=== PATIENT | male | born 1955 | race Caucasian/White ===

== ENCOUNTER 2016-12-13 14:23 | Observation (INO) | payer OTHER ==
[~2016-12-13] VITALS: Ht 170.2 cm; Wt 105.9 kg
[~2016-12-13 14:23] MED LIST: ACET500T98 PO; IBUP-1542 PO; IMO2 PO; OMEP20TA55; ONDA4TAB8 PO
[2016-12-13] MEDS ORDERED: ONDANSETRON 4 MG INJ IV STA (20:39)
[2016-12-13] MEDS ORDERED: SOD CHLORIDE 0.9% 1,000 ML IV STA (20:39)
[2016-12-13] MEDS ORDERED: morphine 4 MG/ML VIAL IV STA (20:39)
[2016-12-13 20:59] LABS: ADD SCAN DIFF NO
[2016-12-13 21:05] LABS: BASOPHILS % 0.3 % (0.0-2.0); HEMATOCRIT 55.1 % (42.0-52.0); HEMOGLOBIN 19.1 g/dl (14.0-18.0); LYMPHOCYTES # 0.9 10^3/ul (0.8-2.9); LYMPHOCYTES % 14.8 % (15.0-51.0); MEAN CORPUSCULAR HEMOGLOBIN 31.8 pg (29.0-33.0); MEAN CORPUSCULAR HGB CONC 34.7 g/dl (32.0-37.0); MEAN CORPUSCULAR VOLUME 91.8 fl (82.0-101.0); MEAN PLATELET VOLUME 10.8 fl (7.4-10.4); MONOCYTE # 0.7 10^3/ul (0.3-0.9); NEUTROPHIL # 4.7 10^3/ul (1.6-7.5); NEUTROPHILS % 73.7 % (39.0-77.0); PLATELET COUNT 234 10^3/UL (140-415); RED CELL DISTRIBUTION WIDTH 13.3 % (11.5-14.5); WHITE BLOOD COUNT 6.4 10^3/ul (4.8-10.8)
--- NOTE | 2016-12-13 21:13 | RADRPT ---
PROCEDURE: Right upper quadrant abdominal ultrasound. CLINICAL INDICATION: Abdominal pain TECHNIQUE: Traore scale and color doppler ultrasound images of the right upper quadrant. COMPARISON: CT abdomen pelvis 10/05/2016 FINDINGS: Pancreas: Visualized portions appear of normal echogenicity, no focal lesions. Liver: Morphology: Normal in size and contour. Echogenicity: Mildly increased echogenicity of the liver suggestive of hepatic steatosis. Focal lesions: None. Main portal vein: Patent with hepatopetal flow. Biliary System: Normal appearing gallbladder wall. No gallstones seen. No intrahepatic biliary dilatation. Common bile duct measures 3.6 mm in maximal dimension. Kidneys: Right 10.2 cm in length. Right renal cortical thickness is preserved. Normal echogenicity. No hydronephrosis. No renal calculi. 3.6 cm cortical cyst of the right kidney. No free fluid identified. IMPRESSION: Normal gallbladder without gallstones. Mildly increased echogenicity of the liver suggestive of hepatic steatosis. RPTAT: AADD .Carlyle Gatica MD, MD Date Time Electronically viewed and signed by .Carlyle Gatica MD, on 12/13/2016 21:13 .B/
[2016-12-13 21:14] LABS: ALBUMIN 4.9 g/dl (3.3-4.9)
[2016-12-13 21:15] LABS: POTASSIUM 4.9 mmol/L (3.5-5.1)
[2016-12-13 21:16] LABS: BILIRUBIN,INDIRECT 0.7 mg/dl (0-1.1); BILIRUBIN,TOTAL 0.7 mg/dl (0.2-1.3); CREATININE 3.65 mg/dl (0.61-1.24)
[2016-12-13 21:17] LABS: ALBUMIN/GLOBULIN RATIO 1.08; CALCIUM 9.2 mg/dl (8.4-10.2); TOTAL PROTEIN 9.4 g/dl (6.1-8.1)
--- NOTE | 2016-12-13 21:42 | ERA ---
ER Documentation Chief Complaint Date/Time DATE: 12/13/16 TIME: 21:39 Chief Complaint AP X 3 DAYS WITH DARK BLACK STOOLS HX COLON CANCER HPI Patient is a 61-year-old male who complains of abdominal pain for last 3 days. The abdominal pain is located across the upper abdomen but most predominantly in the right upper quadrant and radiates through to the back. He has not had any fever, nausea, vomiting, dysuria, hematuria, or flank pain. He did have some diarrhea with one episode of dark stool. He is never experienced this before nothing seems to make it better or worse. He has not been out of the country and he is not been on any antibiotics recently. He denies drinking any alcohol. His colon cancer was approximately 4 years ago and he did receive surgery and chemo at that time. He has been cancer free since then. He has not had any chest pain, shortness of breath, coughing, congestion, rhinorrhea, sore throat, or otalgia. He has not been dizzy, had any abnormal bleeding, bruises, or rashes. ROS All systems reviewed and are negative except as per history of present illness. Medications Home Meds Discontinued Reported Medications Acetaminophen (Tylenol) 500 Mg Tab, 500 MG PO BID 08/27/11 Omeprazole Magnesium (Prilosec OTC) 20 Mg Tablet. 05/23/10 Discontinued Scripts Ibuprofen* (Ibuprofen*) 600 Mg Tablet, 600 MG PO Q8 for PAIN, #30 TAB Prov:DOUG GUERRERO MD 10/05/16 Loperamide Hcl* (Loperamide Hcl*) 2 Mg Cap, 2 MG PO TID for DIARRHEA, #20 CAP Prov:DOUG GUERRERO MD 10/05/16 Ondansetron Hcl* (Zofran*) 4 Mg Tablet, 4 MG PO Q8H Y for NAUSEA AND/OR VOMITING , #30 TAB Prov:DOUG GUERRERO MD 10/05/16 Allergies Allergies: Coded Allergies: No Known Allergies (Verified Allergy, Mild, 12/13/16) PMhx/Soc History of Surgery: Yes (colon resection) Anesthesia Reaction: No Hx Neurological Disorder: No Hx Respiratory Disorders: No Hx Cardiac Disorders: No Hx Psychiatric Problems: No Hx Miscellaneous Medical Probl: Yes (colon cancer) Hx Alcohol Use: No Hx Substance Use: No Hx Tobacco Use: No Smoking Status: Never smoker Physical Exam Vitals Vital Signs Date Time Temp Pulse Resp B/P Pulse Ox O2 Delivery O2 Flow Rate FiO2 12/13/16 21:15 98.4 78 18 116/73 94 Room Air 12/13/16 14:37 98.8 104 20 105/69 96 Physical Exam Const: [] Well-developed well-nourished male who appears uncomfortable but nontoxic Head: Atraumatic normocephalic Eyes: Normal Conjunctiva ENT: Normal External Ears, Nose and Mouth. Neck: Full range of motion..~ No meningismus. Resp: Clear to auscultation bilaterally Cardio: Regular rate and rhythm, no murmurs Abd: Soft, mild tenderness to palpation diffusely but most predominantly in the right upper quadrant, no masses, rebound, or guarding, diminished bowel sounds diffusely Skin: No petechiae or rashes Back: No midline or flank tenderness Ext: No cyanosis, or edema Neur: Awake and alert Psych: Normal Mood and Affect exam rectal is normal tone, stools brown, guaiac negative Result Diagram: 12/13/16204912/13/162049 Results 24 hrs Laboratory Tests Test 12/13/16 20:50 12/13/16 21:30 Alanine Aminotransferase (ALT/SGPT) 94IU/L Albumin 4.9g/dl Albumin/Globulin Ratio 1.08 Alkaline Phosphatase 99IU/L Anion Gap 28 Aspartate Amino Transf (AST/SGOT) 76IU/L Basophils # 0.010^3/ul Basophils % 0.3% Blood Urea Nitrogen 46mg/dl Calcium Level 9.2mg/dl Carbon Dioxide Level 18mmol/L Chloride Level 97mmol/L Creatinine 3.65mg/dl Direct Bilirubin 0.00mg/dl Eosinophils # 0.010^3/ul Eosinophils % 0.0% Globulin 4.50g/dl Glucose Level 122mg/dl Hematocrit 55.1% Hemoglobin 19.1g/dl Indirect Bilirubin 0.7mg/dl Lipase 35U/L Lymphocytes # 0.910^3/ul Lymphocytes % 14.8% Mean Corpuscular Hemoglobin 31.8pg Mean Corpuscular Hemoglobin Concent 34.7g/dl Mean Corpuscular Volume 91.8fl Mean Platelet Volume 10.8fl Monocytes # 0.710^3/ul Monocytes % 11.0% Neutrophils # 4.710^3/ul Neutrophils % 73.7% Nucleated Red Blood Cells # 0.010^3/ul Nucleated Red Blood Cells % 0.0/100WBC Platelet Count 78539^3/UL Potassium Level 4.9mmol/L Red Blood Count 6.0010^6/ul Red Cell Distribution Width 13.3% Sodium Level 138mmol/L Total Bilirubin 0.7mg/dl Total Protein 9.4g/dl White Blood Count 6.410^3/ul Urine Amorphous Urates FEW Urine Bilirubin NEGATIVE Urine Clarity SLIGHTLY CLOUDY Urine Color YELLOW Urine Fine Granular Casts FEW Urine Glucose NEGATIVE% Urine Hemoglobin 2+ Urine Hyaline Casts MODERATE Urine Ketones NEGATIVE Urine Leukocyte Esterase NEGATIVE Urine Microscopic RBC 0-2/HPF Urine Microscopic WBC 0-2/HPF Urine Nitrite NEGATIVE Urine Specific [place] >=1.030 Urine Squamous Epithelial Cells FEW Urine Total Protein 1+ Urine Urobilinogen 0.2 E.U./dL Urine pH 5.0 Current Medications Medications (Trade) Dose Ordered Sig/Rasheeda Route PRN Reason Start Time Stop Time Status Last Admin Dose Admin Sodium Chloride (NS) 1,000 ml @ 1,000 mls/hr Q1H STAT IV 12/13/16 20:39 12/13/16 21:38 DC 12/13/16 20:50 Morphine Sulfate (morphine) 4 mg ONCE STAT IV 12/13/16 20:39 12/13/16 20:42 DC 12/13/16 20:50 Ondansetron HCl 4 mg 4 mg ONCE STAT IV 12/13/16 20:39 12/13/16 20:42 DC 12/13/16 20:50 Sodium Chloride (NS) 1,000 ml @ 1,000 mls/hr Q1H ONCE IV 12/14/16 00:00 12/14/16 00:59 Procedures/MDM Eventual includes but is not limited to diarrhea, gastritis, small bowel obstruction, cholelithiasis, cholecystitis, enteritis, colitis, nonspecific abdominal pain, recurrent cancer Ultrasound of the right upper quadrant does not reveal any acute intra- abdominal findings CT of the abdomen pelvis is still pending. Patient has had a significant increase in his creatinine since September on review of his lab work. Departure Diagnosis: Primary Impression: Abdominal pain Qualified Code: R10.10 - Pain of upper abdomen Additional Impressions: Renal failure (ARF), acute on chronic Diarrhea Qualified Code: R19.7 - Diarrhea, unspecified type History of cancer of colorectal region Dehydration Condition: LAM Rosen Dec 13, 2016 21:42
[2016-12-13 22:18] LABS: ADD UMIC YES; URINE BILIRUBIN (Dip) NEGATIVE (NEGATIVE); URINE BLOOD (Dip) 2+ (NEGATIVE); URINE COLOR YELLOW (YELLOW); URINE GLUCOSE (Dip) NEGATIVE (NEGATIVE); URINE KETONES (Dip) NEGATIVE (NEGATIVE); URINE LEUKOCYTE ESTERASE (Dip) NEGATIVE (NEGATIVE); URINE NITRITE (Dip) NEGATIVE (NEGATIVE); URINE TOTAL PROTEIN (Dip) 1+ (NEGATIVE); URINE UROBILINOGEN (Dip) 0.2 E.U./dL (0.1-1.0)
[2016-12-13 22:26] LABS: SQUAMOUS EPITHELIAL CELL,UR FEW; URINE RBCS 0-2 /HPF (0)
--- NOTE | 2016-12-13 23:38 | RADRPT ---
PROCEDURE: CT Abdomen and Pelvis without contrast. CLINICAL INDICATION: Abdominal pain, right lower quadrant, history of colon carcinoma status post colon resection TECHNIQUE: CT scan of the abdomen and pelvis without contrast was performed on a multidetector hig h-resolution CT scanner. The patient was scanned without intravenous contrast. No oral contrast was administered. Coronal and sagittal reformatted images were obtained from the axial source images. Im ages were reviewed on a high-resolution PACS workstation. The total exam CTDI equals 11.44 mGy and the total exam DLP equals 696.33 mGy-cm. One or more of the following dose reduction techniques were used: - Automated exposure control. - Adjustment of the mA and/or kV according to patient size. - Use of iterative reconstruction technique. COMPARISON: Right upper quadrant abdominal ultrasound of 12/13/[address] abdomen and pelvis with out contrast of 10/05/2016 FINDINGS: Lungs: Mild dependent atelectasis is seen in the posterior lower lungs. Linear atelectasis/fibrosis is seen at the lung bases. Small amount of pericardial fluid. Liver: There is an approximate 1.2 cm oval fluid density structure in the lateral segment of the lef t lobe of liver again seen likely a cyst. Gallbladder: No abnormality seen. Spleen: No abnormality seen. Stomach: The stomach is not fully distended. No gross abnormality seen. Pancreas: No abnormality seen. Adrenals: No abnormality seen. Kidneys: No abnormality is seen in the left kidney. There is an approximate 2.8 cm rounded fluid d ensity structure likely a cyst again seen arising from the upper right kidney. No renal or ureteral stone seen. Abdominal aorta: No aneurysm seen. Atherosclerotic calcification is seen. Calcification in iliac a rteries. Ectasia of right common iliac artery to 1.6 cm diameter again seen. Lymph nodes: No enlarged lymph nodes are seen. Small bowel: No significantly dilated small bowel loops are seen. Colon: Opaque sutures in sigmoid colon in the right upper quadrant status post resection of the colo n proximal to this with anastomosis with small bowel again apparent. Appendix: Not seen. Bladder: No abnormality seen Pelvic organs: No abnormality seen Ascites: None seen. Osseous structures: Lumbar spondylosis. Degenerative changes at sacroiliac joints and hips. Small scattered likely bone islands again seen. Minimal curvature of the lumbar spine with convexity to ri ght again seen. IMPRESSION: Opaque sutures in sigmoid colon in the right upper quadrant status post resection of the colon proxi mal to this with anastomosis with small bowel again apparent. No acute abnormality seen. Please see above. RPTAT: HJES .Darren Nathan MD, Date Time Electronically viewed and signed by .Darren Nathan MD, on 12/13/2016 23:38 .S/
[2016-12-14] MEDS ORDERED: SOD CHLORIDE 0.9% 1,000 ML IV ONE
--- NOTE | 2016-12-14 00:57 | EN ---
Date/Time of Note Date/Time of Note DATE: 12/14/16 TIME: 00:56 ER Progress Note Discussion with admitting doctor was signed out to me by department physician. Patient is a regal IPAA patient. Dr. Calzada who was on-call is unreachable after multiple attempts in both his answering service and his cell phone. : Dr. Rodriguez who I spoke with and who agreed to admit the patient for acute kidney injury and dehydration. Patient is being admitted to medical surgical floor. CRYS MURPHY DO Dec 14, 2016 00:57
[2016-12-14] MEDS ORDERED: ACETAMINOPHEN 325 MG TAB PO PRN ×4 (01:00→02:30)
[2016-12-14] MEDS ORDERED: ONDANSETRON 4 MG INJ IV PRN ×4 (01:00→02:30)
[2016-12-14 01:02] VITALS: TEMP 97.8
[2016-12-14 01:30] VITALS: BP 120/74; PULSE 63; RESP 18; Ht 170.2 cm; Wt 105.9 kg
[2016-12-14 02:05] LABS: POTASSIUM 4.3 mmol/L (3.5-5.1)
[2016-12-14 02:08] LABS: CREATININE 2.38 mg/dl (0.61-1.24)
[2016-12-14 02:09] LABS: CALCIUM 7.8 mg/dl (8.4-10.2)
[2016-12-14] MEDS ORDERED: D5-NS + KCL 40 MEQ 1,000 ML IV SCH (02:30)
[2016-12-14] MEDS ORDERED: morphine 4 MG/ML VIAL IV PRN (02:30)
[2016-12-14] MEDS: POTASSIUM CHLORIDE 40 MEQ in DEXTROSE 5%-0.9% NACL 1,000 ML IV SCH ×4 (05:26→22:23)
[2016-12-14 06:38] LABS: PROTEIN URINE 71.7 mg/dl (0.0-9.9)
[2016-12-14 07:45] VITALS: BP 110/54; RESP 18
[2016-12-14 12:22] LABS: ADD SCAN DIFF NO
--- NOTE | 2016-12-14 12:22 | HP ---
DATE OF ADMISSION: 12/13/2016 PRIMARY CARE PHYSICIAN: Unknown. PREVIOUS FINANCIAL SALES ASSISTANT: Unknown. CHIEF COMPLAINT ON ADMISSION: Right sided abdominal pain and dark stools. HISTORY OF PRESENT ILLNESS: This is a 61-year-old male with history of colon cancer, unclear stage, status post partial colectomy for removal of the mass according to the patient, followed by the 8 doses of chemotherapy over a period of 5 months. This was 5 years ago. Since then, he has not had much followup from what I am understanding. He has not seen any primary care physician or livestock commission agent until a couple years ago. He reports he had then a colonoscopy, not sure what the results were at that time either. The patient claimed that he has been doing fairly okay. He has formed stools usually, but he has been having chronic right lower quadrant abdominal discomfort and pain for the past 5 years. He reports that over the past 3 years he had worsening of his pain on the right lower quadrant area with diarrhea. He has been having loose stools since Sunday. In the first 24 hours , he did notice dark stools coming out. He was having increased pain. He went to [facility], apparently was evaluated there. He had a CAT scan and reports that he was not told anything was abnormal and he was discharged from the emergency department. He was told to go to the lab 24 hours later for recheck. He went to an outpatient laboratory for blood draw. Apparently he was not looking good and not feeling good. They redirected him to the emergency department yesterday. In the emergency department, he had a CAT scan of the abdomen and pelvis and an abdominal ultrasound, which again only showed signs of status post resection of the colon. No other acute findings were seen. His hemoglobin seems to be running between 18 and 19. Therefore, he has signs of polycythemia. He denies any nausea, vomiting, fevers, chills. He denies any other localization of his abdominal pain besides the right upper and right lower quadrant area. He was found to have acute kidney injury with a creatinine up to 3.6 in the emergency department. He was started on IV fluids, kept n.p.o. and admitted to a medical/ surgical floor. This morning he only has discomfort on the right side of his abdomen. He has not had any bowel movements since admission. We are waiting for a stool sample at this time, and he is n.p.o. except for ice chips and sips of water. A gastroenterology consult will be requested with Dr. Mark. When I reviewed his record through [facility], apparently he had an authorization to go see Dr. Mark 2 weeks ago, but the patient has not made any appointment yet. He also has disclosed that he has not even seen his primary care physician so far. ALLERGIES: NO KNOWN ALLERGIES. PAST MEDICAL HISTORY: 1. Colon cancer, status post resection of a right-sided colon mass 5 years ago , followed by chemotherapy [address] at [facility]. 2. Chronic right-sided abdominal discomfort, abdominal pain. PAST SURGICAL HISTORY: Status post partial colon resection for colon cancer. REVIEW OF SYSTEMS: As per HPI. The patient also reports generalized weakness over the past 3 days. SOCIAL HISTORY: The patient lives with his and his children. He does not smoke anymore. He quit approximately 10 years ago. He did smoke for approximately 40 years, 1/4 pack a day. He only occasionally drinks alcohol maybe once a month, but when he does, he drinks a substantial amount, at least half a bottle of tequila. His last binge was back in October. OUTPATIENT MEDICATIONS: None. The patient denies even taking ibuprofen. PHYSICAL EXAMINATION: VITAL SIGNS: Temperature is 98.6, heart rate of 76, sinus rhythm, respiratory rate of 18, blood pressure 110/54. Patient is satting 96% on room air. GENERAL: He is alert and oriented x4. He is in no acute distress. HEENT: Pupils are equally round and reactive to light. Extraocular muscles are intact. Anicteric sclerae. NECK: No JVD, no thyromegaly noted. HEART: Regular rate and rhythm. No murmur, rubs, or gallops. LUNGS: Clear to auscultation bilaterally. ABDOMEN: Soft. The patient has discomfort on the right side, is mostly mid to right lower abdomen. Bowel sounds are present. EXTREMITIES: No edema, clubbing or cyanosis. NEUROLOGIC: Grossly intact. LABORATORY DATA: White blood cell count 6.4, hemoglobin 19.1, hematocrit 55.1, platelet count of 234. Chemistry with a sodium of 137, potassium 4.3, chloride 104, bicarbonate 44, creatinine 2.38 down from 3.65, glucose of 105, calcium of 7.8, total bilirubin 0.7, AST 76, ALT 94, alkaline phosphatase 99, total protein 9.4, lipase of 35, albumin 4.9. Urinalysis is fairly negative. The stool studies are pending so far. RADIOLOGICAL DATA: 1. Ultrasound of the abdomen is showing normal gallbladder without gallstones, mildly increased echogenicity of the liver suggestive of hepatic steatosis. 2. CAT scan of the abdomen and pelvis is showing opaque sutures in sigmoid in the right upper quadrant, status post resection of the colon, proximal to this with anastomosis with small bowel apparent. No acute abnormalities. ASSESSMENT AND PLAN: This is a 61-year-old male with: 1. Diarrhea with dark stools, dehydration and hypovolemia, acute kidney injury. Currently, is not having much more loose stools. He is on IV fluids to rehydrate. His and stool studies are pending. He has no signs of acute infection so far. Therefore, no antibiotics are being given. I will keep him n.p.o. except for ice chips and sips of water. I will consult Dr. Mark as the patient may need a followup colonoscopy and/or EGD, given his history. 2. Acute kidney injury, likely from prerenal azotemia, given the fact that the abdominal ultrasound is showing no kidney abnormalities, only a cyst from the upper right kidney. His renal function is already improving. Will continue IV fluids. Repeat labs later today and also in a.m. 3. Polycythemia, may be just reflecting the hypovolemia. We will continue IV fluids and monitor his hemoglobin. 4. Prophylaxis: Sequential compression devices to lower extremity for deep vein thrombosis prophylaxis and Protonix IV b.i.d. for GI prophylaxis, but also concern for melena. DISPOSITION: The patient is admitted to a medical/surgical bed. He is currently on observation and will have gastroenterology consult with Dr. Mark. Dictated By: DORY LEMOS/BRITTANY Conf#: [id number] DID#: [id number] MTDD
[2016-12-14 12:26] LABS: BASOPHILS % 0.3 % (0.0-2.0); EOSINOPHILS % 0.8 % (0.0-7.0); HEMOGLOBIN 15.7 g/dl (14.0-18.0); LYMPHOCYTES # 1.1 10^3/ul (0.8-2.9); LYMPHOCYTES % 28.6 % (15.0-51.0); MEAN CORPUSCULAR HGB CONC 34.9 g/dl (32.0-37.0); MEAN CORPUSCULAR VOLUME 91.8 fl (82.0-101.0); MEAN PLATELET VOLUME 10.8 fl (7.4-10.4); MONOCYTE # 0.6 10^3/ul (0.3-0.9); MONOCYTES % 16.4 % (0.0-11.0); NEUTROPHILS % 53.6 % (39.0-77.0); PLATELET COUNT 199 10^3/UL (140-415); RED CELL DISTRIBUTION WIDTH 13.2 % (11.5-14.5); WHITE BLOOD COUNT 3.8 10^3/ul (4.8-10.8)
[2016-12-14 12:33] LABS: POTASSIUM 4.6 mmol/L (3.5-5.1)
[2016-12-14 12:34] LABS: INR 1.03; PARTIAL THROMBOPLASTIN TIME 24.6 Sec (25.0-35.0); PROTIME 13.5 Sec (12.2-14.2); PT RATIO 1.1
[2016-12-14 12:36] LABS: CALCIUM 8.4 mg/dl (8.4-10.2); CREATININE 1.59 mg/dl (0.61-1.24)
[2016-12-14 12:37] LABS: MAGNESIUM 2.1 mg/dl (1.7-2.5)
[2016-12-14] MEDS ORDERED: BISACODYL (EC) 5 MG TAB PO ONE ×2 (19:00→23:00)
--- NOTE | 2016-12-14 19:37 | CONS ---
Date/Time of Note Date/Time of Note DATE: 12/14/16 TIME: 19:26 Assessment/Plan Assessment/Plan Additional Assessment/Plan Melena stool/acute anemia/Abdominal pain * EGD with Dr. Chavira * PPI twice daily * Monitor hemoglobin every 8 hours, transfuse 2 units for hemoglobin less than 7.5 History of colon cancer * Colonoscopy with Dr. Chavira Diarrhea * Rule out infectious process, C. difficile in process Acute kidney injury * Nephrology following Further recommendations depend on clinical course Patient seen in collaboration with Dr. Mark Consultation Date/Type/Reason Admit Date/Time Dec 13, 2016 at 23:42 Type of Consultation: Gastroenterology Reason for Consultation Abdominal pain and diarrhea Hx of Present Illness 61-year-old male with reports of diarrhea, intermittent dark melena stools, and right lower quadrant abdominal pain 4 days. Patient has past medical history of colon cancer status post radiation and colon resection approximately 5 years ago. Patient unsure of last colonoscopy, but states it was normal. She has been lost to follow-up. Patient states that abdominal pain and intermittent diarrhea have been present for the last 2 years. He went to [facility] on [address] a CT scan and he was not told anything was abnormal and he was discharged from the emergency department. He was told to go to the lab 24 hours later for recheck. He went to an outpatient laboratory for blood draw and he was later advised to be evaluated at emergency room due to his presentation. During hospitalization, hemoglobin dropped from 19.1 to 15.7. Due to complaints of melena stools and right lower quadrant pain, EGD and colonoscopy are recommended. Patient advised of risks/benefits/ alternatives to procedure and he is agreeable to proceed. Social History Smoking Status: Never smoker Exam/Review of Systems Vital Signs Vitals Vital Signs Date Time Temp Pulse Resp B/P Pulse Ox O2 Delivery O2 Flow Rate FiO2 12/14/16 07:45 98.6 76 18 110/54 96 12/14/16 01:30 Room Air Intake and Output 12/13/16 12/13/16 12/14/16 15:00 23:00 07:00 Intake Total 1000 ml 125 ml Balance 1000 ml 125 ml Exam GENERAL: He is alert and oriented x4. He is in no acute distress. HEENT: Pupils are equally round and reactive to light. Extraocular muscles are intact. Anicteric sclerae. NECK: No JVD, no thyromegaly noted. HEART: Regular rate and rhythm. No murmur, rubs, or gallops. LUNGS: Clear to auscultation bilaterally. ABDOMEN: Soft. Epigastric and right lower quadrant tenderness bowel sounds are present. EXTREMITIES: No edema, clubbing or cyanosis. NEUROLOGIC: Grossly intact. Results Result Diagram: 12/14/16 1200 12/14/16 1200 Results 24 hrs Laboratory Tests Test 12/13/16 20:50 12/13/16 21:30 12/14/16 01:30 12/14/16 05:23 Alanine Aminotransferase (ALT/SGPT) 94 H Albumin 4.9 Albumin/Globulin Ratio 1.08 Alkaline Phosphatase 99 Anion Gap 28 H 19 #H Aspartate Amino Transf (AST/SGOT) 76 H Basophils # 0.0 Basophils % 0.3 Blood Urea Nitrogen 46 H 44 H Calcium Level 9.2 7.8 L Carbon Dioxide Level 18 L 18 L Chloride Level 97 104 Creatinine 3.65 H 2.38 #H Direct Bilirubin 0.00 Eosinophils # 0.0 Eosinophils % 0.0 Globulin 4.50 H Glucose Level 122 105 Hematocrit 55.1 H Hemoglobin 19.1 H Indirect Bilirubin 0.7 Lipase 35 Lymphocytes # 0.9 Lymphocytes % 14.8 L Mean Corpuscular Hemoglobin 31.8 Mean Corpuscular Hemoglobin Concent 34.7 Mean Corpuscular Volume 91.8 Mean Platelet Volume 10.8 H Monocytes # 0.7 Monocytes % 11.0 Neutrophils # 4.7 Neutrophils % 73.7 Nucleated Red Blood Cells # 0.0 Nucleated Red Blood Cells % 0.0 Platelet Count 234 Potassium Level 4.9 4.3 Red Blood Count 6.00 Red Cell Distribution Width 13.3 Sodium Level 138 137 Total Bilirubin 0.7 Total Protein 9.4 H White Blood Count 6.4 # Urine Amorphous Urates FEW Urine Bilirubin NEGATIVE Urine Clarity SLIGHTLY CLOUDY Urine Color YELLOW Urine Fine Granular Casts FEW Urine Glucose NEGATIVE Urine Hemoglobin 2+ H Urine Hyaline Casts MODERATE Urine Ketones NEGATIVE Urine Leukocyte Esterase NEGATIVE Urine Microscopic RBC 0-2 Urine Microscopic WBC 0-2 Urine Nitrite NEGATIVE Urine Specific [place] >=1.030 H Urine Squamous Epithelial Cells FEW Urine Total Protein 1+ H 71.7 H Urine Urobilinogen 0.2 E.U./dL Urine pH 5.0 Urine Random Creatinine 148.95 Urine Random Sodium 32 Test 12/14/16 12:00 Activated Partial Thromboplast Time 24.6 L Anion Gap 17 H Basophils # 0.0 Basophils % 0.3 Blood Urea Nitrogen 37 H Calcium Level 8.4 Carbon Dioxide Level 21 Chloride Level 109 Creatinine 1.59 H Eosinophils # 0.0 Eosinophils % 0.8 Glucose Level 93 Hematocrit 45.0 Hemoglobin 15.7 INR International Normalized Ratio 1.03 Lymphocytes # 1.1 Lymphocytes % 28.6 Magnesium Level 2.1 Mean Corpuscular Hemoglobin 32.0 Mean Corpuscular Hemoglobin Concent 34.9 Mean Corpuscular Volume 91.8 Mean Platelet Volume 10.8 H Monocytes # 0.6 Monocytes % 16.4 H Neutrophils # 2.0 Neutrophils % 53.6 Nucleated Red Blood Cells # 0.0 Nucleated Red Blood Cells % 0.0 Platelet Count 199 Potassium Level 4.6 Prothrombin Time 13.5 Prothrombin Time Ratio 1.1 Red Blood Count 4.90 Red Cell Distribution Width 13.2 Sodium Level 142 White Blood Count 3.8 #L Medications Medications Current Medications Acetaminophen (Tylenol Tab) 650 mg Q4H PRN PO PAIN AND OR ELEVATED TEMP; Start 12/14/16 at 02:30 Ondansetron HCl (Zofran Inj) 4 mg Q4H PRN IV NAUSEA AND/OR VOMITING; Start 12/14 at 02:30 Morphine Sulfate 4 mg 4 mg Q3H PRN IV pain; Start 12/14/16 at 02:30 Potassium Chloride/Dextrose/ Sodium Chloride (KCl/D5-NS) 1,020 ml @ 125 mls/hr Q8H10M IV Last administered on 12/14/16t 14:00; Admin Dose 125 MLS/HR; Start 12/14/16 at 02:30 Magnesium Citrate (Citroma) 300 ml ONCE ONCE PO ; Start 12/14/16 at 20:00; Stop 12/14/16 at 20:01 Polyethylene Glycol (Miralax) 119 gm ONCE ONCE PO ; Start 12/14/16 at 21:00; Stop 12/14/16 at 21:01 ADAM ALLEN Dec 14, 2016 19:37
[2016-12-14] MEDS ORDERED: MAGNESIUM CITRATE 300 ML BTL PO ONE (20:00)
[2016-12-14 20:55] VITALS: BP 107/58; RESP 19
[2016-12-14] MEDS ORDERED: POLYETHYLENE GLYCOL 3350 119 GM POWDER PO ONE ×2 (21:00→23:00)
[2016-12-15] VITALS (8 sets, daily range): BP systolic 103–115; BP diastolic 54–68; PULSE 52–66; RESP 13–22
[2016-12-15 05:59] LABS: ADD SCAN DIFF NO
[2016-12-15 06:10] LABS: BASOPHILS % 0.5 % (0.0-2.0); EOSINOPHILS # 0.1 10^3/ul (0.0-0.5); EOSINOPHILS % 2.1 % (0.0-7.0); HEMATOCRIT 45.1 % (42.0-52.0); HEMOGLOBIN 15.4 g/dl (14.0-18.0); LYMPHOCYTES # 1.2 10^3/ul (0.8-2.9); MEAN CORPUSCULAR HEMOGLOBIN 31.8 pg (29.0-33.0); MEAN CORPUSCULAR HGB CONC 34.1 g/dl (32.0-37.0); MEAN CORPUSCULAR VOLUME 93.2 fl (82.0-101.0); MEAN PLATELET VOLUME 10.8 fl (7.4-10.4); MONOCYTE # 0.6 10^3/ul (0.3-0.9); MONOCYTES % 12.9 % (0.0-11.0); NEUTROPHIL # 2.5 10^3/ul (1.6-7.5); NEUTROPHILS % 57.3 % (39.0-77.0); PLATELET COUNT 205 10^3/UL (140-415); RED BLOOD COUNT 4.84 10^6/ul (4.70-6.10); RED CELL DISTRIBUTION WIDTH 13.4 % (11.5-14.5); WHITE BLOOD COUNT 4.3 10^3/ul (4.8-10.8)
[2016-12-15] MEDS: POTASSIUM CHLORIDE 40 MEQ in DEXTROSE 5%-0.9% NACL 1,000 ML IV SCH ×3 (06:32→17:54)
[2016-12-15 06:34] LABS: INR 0.98
[2016-12-15 06:35] LABS: PARTIAL THROMBOPLASTIN TIME 23.5 Sec (25.0-35.0)
[2016-12-15 06:50] LABS: MAGNESIUM 2.2 mg/dl (1.7-2.5); PHOSPHORUS 3.2 mg/dl (2.5-4.9)
[2016-12-15 06:55] LABS: POTASSIUM 4.3 mmol/L (3.5-5.1)
[2016-12-15 06:57] LABS: CREATININE 1.22 mg/dl (0.61-1.24)
[2016-12-15 06:58] LABS: CALCIUM 8.3 mg/dl (8.4-10.2)
--- NOTE | 2016-12-15 14:53 | PN ---
Date/Time of Note Date/Time of Note DATE: 12/15/16 TIME: 14:46 Assessment/Plan VTE Prophylaxis VTE Prophylaxis Intervention: SCD's Lines/Catheters IV Catheter Type (from Nrs): Saline Lock Urinary Cath still in place: No Assessment/Plan Assessment/Plan 61-year-old male: 1. Diarrhea with dark stools, hx of colon CA Appreciate GI evaluation and recommendations EGD/[place] today with Dr Cait Harris diff negative 2. Acute kidney injury, likely from prerenal azotemia, due to diarrhea and hypovolemia Much improved renal function today Continue IVF an monitor renal function Abdominal ultrasound with no kidney abnormalities, only a cyst from the upper right kidney. 3. Polycythemia, 2ry to hemoconcentration in setting of dehydration. Resolving Continue IV fluids and monitor H/H. Prophylaxis: Sequential compression devices to lower extremity for deep vein thrombosis prophylaxis and Protonix IV b.i.d. DISPOSITION: EGD and [place] today hopefully with Dr Chavira. Subjective 24 Hr Interval Summary Free Text/Dictation Patient doing better with less pain and no melena reported, prepped for [place] and EGD today with Dr Chavira Afebrile and CBC wnl Exam/Review of Systems Vital Signs Vitals Vital Signs Date Time Temp Pulse Resp B/P Pulse Ox O2 Delivery O2 Flow Rate FiO2 12/15/16 14:33 97.9 52 13 108/65 95 Room Air Intake and Output 12/14/16 12/14/16 12/15/16 15:00 23:00 07:00 Intake Total 850 ml 1240 ml 3940.0 ml Balance 850 ml 1240 ml 3940.0 ml Exam Constitutional: alert, oriented, well developed Respiratory: clear to auscultation, normal air movement Cardiovascular: nl pulses, regular rate and rhythm Gastrointestinal: other (very minimal discomfort RLQ/mid abdo ), soft Musculoskeletal: nl extremities to inspection Extremities: normal pulses Neurological: HIGH WIRE ARTIST II-XII intact, nl mental status, nl speech, nl strength Results Result Diagram: 12/15/16 0545 12/15/16 0545 Results 24 hrs Laboratory Tests Test 12/15/16 05:45 Activated Partial Thromboplast Time 23.5 L Anion Gap 15 Basophils # 0.0 Basophils % 0.5 Blood Urea Nitrogen 24 #H Calcium Level 8.3 L Carbon Dioxide Level 22 Chloride Level 111 H Creatinine 1.22 Eosinophils # 0.1 Eosinophils % 2.1 Glucose Level 100 Hematocrit 45.1 Hemoglobin 15.4 INR International Normalized Ratio 0.98 Lymphocytes # 1.2 Lymphocytes % 27.0 Magnesium Level 2.2 Mean Corpuscular Hemoglobin 31.8 Mean Corpuscular Hemoglobin Concent 34.1 Mean Corpuscular Volume 93.2 Mean Platelet Volume 10.8 H Monocytes # 0.6 Monocytes % 12.9 H Neutrophils # 2.5 Neutrophils % 57.3 Nucleated Red Blood Cells # 0.0 Nucleated Red Blood Cells % 0.0 Phosphorus Level 3.2 Platelet Count 205 Potassium Level 4.3 Prothrombin Time 13.0 Prothrombin Time Ratio 1.0 Red Blood Count 4.84 Red Cell Distribution Width 13.4 Sodium Level 144 White Blood Count 4.3 L Medications Medications Current Medications Acetaminophen (Tylenol Tab) 650 mg Q4H PRN PO PAIN AND OR ELEVATED TEMP; Start 12/14/16 at 02:30 Ondansetron HCl (Zofran Inj) 4 mg Q4H PRN IV NAUSEA AND/OR VOMITING; Start 12/14 at 02:30 Morphine Sulfate 4 mg 4 mg Q3H PRN IV pain; Start 12/14/16 at 02:30 Potassium Chloride/Dextrose/ Sodium Chloride (KCl/D5-NS) 1,020 ml @ 125 mls/hr Q8H10M IV Last administered on 12/15/16t 06:32; Admin Dose 125 MLS/HR; Start 12/14/16 at 02:30 DORY WHITE Dec 15, 2016 14:53
[2016-12-15] MEDS ORDERED: LIDOCAINE 2% (SDV) 5 ML INJ ONE (14:55)
[2016-12-15] MEDS ORDERED: PROPOFOL 40 ML ONE (14:55)
[2016-12-15] MEDS ORDERED: ONDANSETRON 4 MG INJ IV PRN (15:00)
[2016-12-15] MEDS ORDERED: HYDROmorphONE (0.2 MG/ML) 10ML SYG IV PRN (15:00)
[2016-12-15] MEDS ORDERED: FENTAnyl 50 MCG/ML VIAL IV PRN (15:00)
--- NOTE | 2016-12-15 15:36 | OPR ---
Date/Time of Note Date/Time of Note DATE: 12/15/16 TIME: 15:25 Operative Report Free Text/Dictation EGD IMPRESSION: 1. DUODENAL ULCER 2. GASTRIC BODY EROSIONS COLONOSCOPY IMPRESSION 1. S/P COLECTOMY WITH ILEORECTAL ANASTOMOSIS 2. NORMAL ILEUM AND RECTUM. 3. THE COLON IS POORLY PREPPED. RECOMMENDATIONS: 1. F/U BIOPSY RESULTS 2. IF BIOPSY SHOWED H. PYLORI, TREAT FOR ERADICATION. Procedure Date: Dec 15, 2016 Preoperative Diagnosis MELENA, H/O COLON CANCER Postoperative Diagnosis DUODENAL ULCER, GASTRIC BODY EROSION, S/P COLECTOMY WITH ILEORECTAL ANASTOMOSIS Operation Performed EGD WITH BIOPSY COLONOSCOPY Surgeon: DOUG ALLEN MD Anesthesia: MAC Anesthesiologist: KALPANA DANIEL MD Estimated Blood Loss: minimal Specimens ANTRUM AND BODY OF STOMACH TO R/O H. PYLORI, DYSPLASIA, INFLAMMATION Complications: None Pt Condition Post Procedure: stable Disposition: PACU Indications MELENA, H/O COLON CANCER Operative Findings 1. DUODENAL CLEAN BASED ULCER, NO ACTIVELY BLEEDING 2. GASTRIC BODY EROSION, NOT ACTIVELY BLEEDING 3. S/P COLECTOMY WITH ILEORECTAL ANASTOMOSIS 4. NORMAL RECTUM AND ILEUM Procedure Description AFTER INFORMED CONSENT AND TIME OUT, WE INSERTED AN ADULT EGD SCOPE FROM THE MOUTH AND ADVANCED TO THE 2ND PORTION OF THE DUODENUM. GASTRIC BODY AND ANTRUM WAS EVALUATED AND RETROFLEXION PERFORMED IN THE BODY OF THE STOMACH REVEALING CARDIA AND FUNDUS. I THEN SUCTIONED OUT THE AIR WHILE EVALUATING ESOPHAGUS BEFORE COMPLETELY WITHDRAWING THE EGD SCOPE. GEJ AND Z LINE AT 39 CM, NO HIATAL HERNIA AND NO BARRETTS ESOPHAGUS. PATIENT WAS THEN TURNED AROUND FOR COLONOSCOPY. PERIANAL EXAM WAS NORMAL. I THEN INSERTED COLONOSCOPE FROM THE ANUS AND ADVANCED TO ILEO-RECTAL ANASTOMOSIS AT 40 CM. OWEL EYE WAS SEEN AND A SIDE OF SIDE ANASTOMOSIS WAS OBSERVED. I INTUBATED INTO THE ILEUM AND EVALUATED THE ILEUM X 20 CM. THE RECTUM AND ILEUM WAS NORMAL ALTHOUGH IT WAS POOR PREP SO SMALL POLYPS COULD BE MISSED. RETROFLEXION WAS PERFORMED REVEALING SMALL TO MODERATE SIZED HEMORRHOIDS. I THEN COMPLETELY REMOVED THE COLONOSCOPE WHILE SUCTIONED OUT AIR. DOUG ALLEN MD Dec 15, 2016 15:36
[2016-12-15] MEDS ORDERED: EPHEDrine SULFATE 50 MG/5 ML SYG ONE (15:48)
[2016-12-16 06:02] LABS: ADD SCAN DIFF NO
[2016-12-16 06:34] LABS: BASOPHILS % 0.7 % (0.0-2.0); EOSINOPHILS # 0.1 10^3/ul (0.0-0.5); EOSINOPHILS % 2.7 % (0.0-7.0); HEMATOCRIT 41.8 % (42.0-52.0); HEMOGLOBIN 14.6 g/dl (14.0-18.0); LYMPHOCYTES # 1.2 10^3/ul (0.8-2.9); MEAN CORPUSCULAR HEMOGLOBIN 32.2 pg (29.0-33.0); MEAN CORPUSCULAR HGB CONC 34.9 g/dl (32.0-37.0); MEAN CORPUSCULAR VOLUME 92.1 fl (82.0-101.0); MEAN PLATELET VOLUME 10.8 fl (7.4-10.4); MONOCYTE # 0.4 10^3/ul (0.3-0.9); MONOCYTES % 9.8 % (0.0-11.0); NEUTROPHIL # 2.6 10^3/ul (1.6-7.5); NEUTROPHILS % 58.6 % (39.0-77.0); PLATELET COUNT 207 10^3/UL (140-415); RED BLOOD COUNT 4.54 10^6/ul (4.70-6.10); RED CELL DISTRIBUTION WIDTH 12.9 % (11.5-14.5); WHITE BLOOD COUNT 4.4 10^3/ul (4.8-10.8)
[2016-12-16 06:40] LABS: POTASSIUM 4.3 mmol/L (3.5-5.1)
[2016-12-16 06:42] LABS: CREATININE 1.02 mg/dl (0.61-1.24)
[2016-12-16 06:43] LABS: CALCIUM 8.5 mg/dl (8.4-10.2); MAGNESIUM 1.9 mg/dl (1.7-2.5); PHOSPHORUS 4.1 mg/dl (2.5-4.9)
[2016-12-16 08:02] VITALS: BP 109/63; RESP 18
[2016-12-16] MEDS: POTASSIUM CHLORIDE 40 MEQ in DEXTROSE 5%-0.9% NACL 1,000 ML IV SCH (08:13)
[2016-12-16 08:20] VITALS: PULSE 57
--- NOTE | 2016-12-16 09:03 | PDOCDIS ---
Discharge Instructions CONDITION Patient Condition: Good HOME CARE INSTRUCTIONS: Diet Instructions: Regular ACTIVITY: Activity Restrictions: No Restrictions FOLLOW UP/APPOINTMENTS Appointments Follow up with PCP within 1 to 2 weeks Follow up with [facility], DR Mark as needed DORY WHITE Dec 16, 2016 09:03
[2016-12-16] MEDS ORDERED: PANTOPRAZOLE (EC) 40 MG TAB PO SCH (09:30)
--- NOTE | 2016-12-16 10:38 | PN ---
Date/Time of Note Date/Time of Note DATE: 12/16/16 TIME: 10:33 Assessment/Plan VTE Prophylaxis VTE Prophylaxis Intervention: SCD's Lines/Catheters IV Catheter Type (from Nrs): Peripheral IV Urinary Cath still in place: No Assessment/Plan Assessment/Plan 61-year-old male: 1. Diarrhea with dark stools, hx of colon CA. Resolved, s/p EGD/[place] with findings of Gastric erosions and duodenal ulcer Appreciate GI evaluation and recommendations, PPI bid and d/c home today Tolerating po. C diff negative 2. Acute kidney injury, likely from prerenal azotemia, due to diarrhea and hypovolemia. Resolved 3. Polycythemia, 2ry to hemoconcentration in setting of dehydration. Resolved Prophylaxis: Sequential compression devices to lower extremity for deep vein thrombosis prophylaxis and Protonix DISPOSITION: d/c home with PCP follow up Subjective 24 Hr Interval Summary Free Text/Dictation Tolerating po and no further diarrhea D/c home Exam/Review of Systems Vital Signs Vitals Vital Signs Date Time Temp Pulse Resp B/P Pulse Ox O2 Delivery O2 Flow Rate FiO2 12/16/16 08:20 57 12/16/16 08:02 98.1 18 109/63 95 12/15/16 17:02 Room Air Intake and Output 12/15/16 12/15/16 12/16/16 15:00 23:00 07:00 Intake Total 1450 ml 1300 ml Balance 1450 ml 1300 ml Exam Constitutional: alert, oriented, well developed Respiratory: clear to auscultation, normal air movement Cardiovascular: nl pulses, regular rate and rhythm Gastrointestinal: non-tender, soft Musculoskeletal: nl extremities to inspection Extremities: normal pulses Neurological: MAT CUTTER II-XII intact, nl mental status, nl speech, nl strength Results Result Diagram: 12/16/1624 12/16/16 0524 Results 24 hrs Laboratory Tests Test 12/16/16 05:24 Anion Gap 15 Basophils # 0.0 Basophils % 0.7 Blood Urea Nitrogen 14 # Calcium Level 8.5 Carbon Dioxide Level 23 Chloride Level 110 Creatinine 1.02 Eosinophils # 0.1 Eosinophils % 2.7 Glucose Level 86 Hematocrit 41.8 L Hemoglobin 14.6 Lymphocytes # 1.2 Lymphocytes % 28.0 Magnesium Level 1.9 Mean Corpuscular Hemoglobin 32.2 Mean Corpuscular Hemoglobin Concent 34.9 Mean Corpuscular Volume 92.1 Mean Platelet Volume 10.8 H Monocytes # 0.4 Monocytes % 9.8 Neutrophils # 2.6 Neutrophils % 58.6 Nucleated Red Blood Cells # 0.0 Nucleated Red Blood Cells % 0.0 Phosphorus Level 4.1 Platelet Count 207 Potassium Level 4.3 Red Blood Count 4.54 L Red Cell Distribution Width 12.9 Sodium Level 144 White Blood Count 4.4 L Medications Medications Current Medications Acetaminophen (Tylenol Tab) 650 mg Q4H PRN PO PAIN AND OR ELEVATED TEMP; Start 12/14/16 at 02:30 Ondansetron HCl (Zofran Inj) 4 mg Q4H PRN IV NAUSEA AND/OR VOMITING; Start 12/14 at 02:30 Morphine Sulfate (morphine) 4 mg Q3H PRN IV pain; Start 12/14/16 at 02:30 Pantoprazole (Protonix Tab) 40 mg BID@06,18 PO Last administered on 12/16/16t 09 :52; Admin Dose 40 MG; Start 12/16/16 at 09:30 DORY WHITE Dec 16, 2016 10:38
[2016-12-16] MEDS ORDERED: PANT40TA4 PO (10:39)
--- NOTE | 2016-12-16 13:49 | DS ---
DATE OF ADMISSION: 12/13/2016 DATE OF DISCHARGE: 12/16/2016 CONSULTANTS DURING THIS ADMISSION: Dr. Mark from gastroenterology. PRIMARY DISCHARGING PHYSICIAN: Dr. Reyez. DISCHARGING PHYSICIAN: Dr. Reyez. CHIEF COMPLAINT ON ADMISSION: Abdominal pain and dark stools. BRIEF HISTORY OF PRESENT ILLNESS: This is a 61-year-old male with history of colon cancer, status p ost partial colectomy for removal of the mass according to the patient and status post chemotherapy, over a period of 5 months. This was 5 years ago. He presented in the emergency department with no t much followup as an outpatient, except for colonoscopy 2 years ago that was negative with complain ts of diarrhea and dark stools. He has been able to tolerate much p.o. He was also found to be in acute kidney injury. He was admitted to a medical/surgical bed for IV fluids and gastroenterology e valuation. HOSPITAL COURSE: The patient had a CAT scan of the abdomen and pelvis which was fairly unremarkable , only showing a previous surgery and anastomosis in the sigmoid colon area. His white count remain ed stable. He had no additional episodes of diarrhea after his first day of admission. Stool spencer p was negative. Therefore, gastroenterology was consulted. The patient had a colonoscopy and EGD y that showed a duodenal ulcer and gastric erosions. His colonoscopy was stable. Patient is therefore being discharged home today on Protonix. He is tolerating p.o. well. Regarding his acute kidney injury, it is completely resolved post-IV fluid hydration. At this point , his renal function is back to normal. DISPOSITION: Discharge home. DISCHARGE CONDITION: Stable. DISCHARGE DIET: Regular diet. DISCHARGE ACTIVITY: Resume home activity. FOLLOWUP: The patient is to follow up with his primary care physician within 1 week and follow up w [facility], Dr. Mark, within 2 to 4 weeks as needed. DISCHARGE DIAGNOSES: 1. Duodenal ulcer and gastric erosions. 2. History of colon cancer, status post partial colectomy. 3. Chronic right-sided abdominal discomfort. 4. Acute kidney injury, resolved. DISCHARGE MEDICATIONS: Protonix 40 mg p.o. b.i.d. Dictated By: DORY LEMOS/NTS Conf#: [id number] DID#: [id number]
--- NOTE | 2016-12-17 10:29 | CONS ---
Date/Time of Note Date/Time of Note DATE: 12/16/16 TIME: 10:25 Note this is the date of follow up encounter Assessment/Plan Assessment/Plan Chief Complaint/Hosp Course IMPRESSION: 1. DUODENAL ULCER 2. GASTRIC BODY EROSIONS 3. S/P COLECTOMY WITH ILEORECTAL ANASTOMOSIS 4. DIARRHEA: IMPROVED RECOMMENDATIONS: 1. F/U BIOPSY RESULTS 2. IF BIOPSY SHOWED H. PYLORI, TREAT FOR ERADICATION. 3. OK FROM GI PERSPECTIVE TO DC HOME IF OK WITH PRIMARY AND OTHER CONSULTANTS. 4. PLS GIVE PATIENT INFO TO CONTACT DR. FENG'S OFFICE FOR F/U COLON WAS POORLY PREPPED AND NEEDS A REPEAT COLONOSCOPY IN 1 YEAR. Problems: Consultation Date/Type/Reason Admit Date/Time Dec 13, 2016 at 23:42 Initial Consult Date Type of Consultation: Gastroenterology 24 HR Interval Summary Free Text/Dictation Tolerating po and no further diarrhea, no n/v Constitutional: improved Exam/Review of Systems Vital Signs Vitals Vital Signs Date Time Temp Pulse Resp B/P Pulse Ox O2 Delivery O2 Flow Rate FiO2 12/16/16 08:20 57 12/16/16 08:02 98.1 18 109/63 95 12/15/16 17:02 Room Air Intake and Output 12/16/16 12/16/16 12/17/16 15:00 23:00 07:00 Intake Total 690 ml Balance 690 ml Exam Constitutional: alert, oriented, well developed Psych: nl mood/affect, no complaints Head: atraumatic, normocephalic Eyes: EOMI, nl conjunctiva, nl lids, nl sclera ENMT: mucosa pink and moist, nl external ears & nose, nl lips & teeth, nl nasal mucosa & septum Neck: non-tender, supple Respiratory: clear to auscultation, normal air movement Cardiovascular: nl pulses, regular rate and rhythm Gastrointestinal: bowel sounds, non-tender, soft Results Result Diagram: 12/16/16 0524 12/16/16 0524 DOUG ALLEN MD Dec 17, 2016 10:29
== END 2016-12-16 13:36 | disposition home or self-care (01) ==
LOC: E/R 14:23 → PP2 23:42
PROVIDERS: ADMIT Internal Medicine; ATTEND Internal Medicine
DX: K26.9 Duodenal ulcer, unspecified as acute or chronic, without hemorrhage or perforation (principal); Z85.038 Personal history of other malignant neoplasm of large intestine; N17.9 Acute kidney failure, unspecified; K29.30 Chronic superficial gastritis without bleeding
CPT/HCPCS: 36415; 43239; 45378; 74176; 76705; 80048; 80053; 81001; 81003; 82270; 83690; 83735; 84100; 84155; 84300; 85025; 85610; 85730; 87045; 87075; 87177; 87205; 88305; 88312; 96360; 96361; 96374; 96375; J2270; J2405; J3480; J7030; J7042; Z7500; Z7502; Z7610; G0378

== ENCOUNTER 2019-06-03 17:49 | Emergency (ER) | payer OTHER ==
[~2019-06-03] VITALS: Ht 172.7 cm; Wt 91.9 kg
[~2019-06-03 17:49] MED LIST changes: -ACET500T98 PO; +CIPR500T4 PO; -IBUP-1542 PO; -IMO2 PO; -OMEP20TA55; -ONDA4TAB8 PO; +PANT40TA4 PO; +PHEN-538 PO
[2019-06-03 18:08] VITALS: Ht 172.7 cm; Wt 91.9 kg
[2019-06-03] MEDS ORDERED: IBUPROFEN 600 MG TAB PO ONE (19:30)
[2019-06-03 20:28] VITALS: BP 109/64; PULSE 71; RESP 17
== END 2019-06-03 20:28 | disposition home or self-care (01) ==
LOC: FTE 17:49
DX: R39.89 Other symptoms and signs involving the genitourinary system (principal); Z85.038 Personal history of other malignant neoplasm of large intestine
CPT/HCPCS: 81003; 87086; Z7502; Z7610; 99283